=== PATIENT | male | born 1980 | race Caucasian/White ===

== ENCOUNTER 2017-04-19 23:15 | Emergency (ER) | payer SELFPAY ==
[2017-04-19 23:16] VITALS: BMI 23.6
[2017-04-19 23:37] VITALS: RESP 18; TEMP 97.9; O2SAT 99
--- NOTE | 2017-04-19 23:44 | ED PDOC ---
Arrival/HPI - General Chief Complaint: Dental Pain Time Seen by Provider: 04/19/17 23:44 Historian: Patient - History of Present Illness Narrative History of Present Illness (Text): 04/19/17 23:44 36 year old male, whose past medical history includes wisdom tooth removal (6 months ago) and appendectomy, presents to the emergency department complaining of a passing out episode today which you felt was related to pain. Patient reports of worsening left sided oral pain radiating to the neck that began yesterday. He states releasing puss from the oral area. Patient reports passing out on the floor s/p having a headache with intact of Motrin. He does not recall what happened. Patient reports headache, nausea, vomiting x1, photophobia , but denies any fever, chills, chest pain, shortness of breath, diarrhea, urinary symptoms, back pain, dizziness, neck spinal tenderness, or any other complaints/injuries. 04/20/17 01:14 Time/Duration: Other (yesterday) Symptom Onset: Sudden Symptom Course: Worsening Activities at Onset: Light Context: Home Past Medical History - Provider Review Nursing Documentation Reviewed: Yes - Travel History Have you recently traveled outside [place] w/in the past 3 mons?: No - Tetanus Immunization Tetanus Immunization: Up to Date - Past Medical History Past Medical History: No Previous - Cardiac Hx Cardiac Disorders: No - Pulmonary Hx Respiratory Disorders: No - HEENT Hx HEENT Disorder: No - Renal Hx Renal Disorder: No - Endocrine/Metabolic Hx Endocrine Disorders: No - Hematological/Oncological Hx Blood Disorders: No - Integumentary Hx Dermatological Disorder: No - Musculoskeletal/Rheumatological Hx Musculoskeletal Disorders: No - Gastrointestinal Other/Comment: Appendicitis - Genitourinary/Gynecological Hx Genitourinary Disorders: No - Psychiatric Hx Psychophysiologic Disorder: No Hx Substance Use: No - Surgical History Hx Appendectomy: Yes - Suicidal Assessment Feels Threatened In Home Enviroment: No Family/Social History - Physician Review Nursing Documentation Reviewed: Yes Family/Social History: No Known Family HX Smoking Status: Current Some Days Smoker Hx Alcohol Use: No Hx Substance Use: No Allergies/Home Meds Allergies/Adverse Reactions: Allergies Penicillins Allergy (Verified 04/20/17 00:39) ANAPHYLAXIS Home Medications: Home Meds Medication Instructions Recorded Confirmed No Known Home Med 04/19/17 04/19/17 Review of Systems - Physician Review All systems were reviewed & negative as marked: Yes - Review of Systems Constitutional: absent: Fevers, Other (Chills) Eyes: Photophobia ENT: Other (Left oral pain) Respiratory: absent: SOB Cardiovascular: absent: Chest Pain Gastrointestinal: Nausea, Vomiting. absent: Diarrhea Genitourinary Male: absent: Dysuria, Frequency, Hematuria Musculoskeletal: Neck Pain. absent: Back Pain Neurological: absent: Headache, Dizziness Endocrine: Normal Hemo/Lymphatic: Normal Psychiatric: Normal Physical Exam Vital Signs Reviewed: Yes Vital Signs Temp Pulse Resp BP Pulse Ox 04/19/17 23:36 97.9 F 55 L 18 107/81 99 Temperature: Afebrile Blood Pressure: Normal Pulse: Bradycardic Respiratory Rate: Normal Appearance: Positive for: Well-Appearing, Non-Toxic, Comfortable Pain Distress: None Mental Status: Positive for: Alert and Oriented X 3 - Systems Exam Head: Present: Atraumatic, Normocephalic Pupils: Present: PERRL. No: Other ((-) Nystagmia) Extroacular Muscles: Present: EOMI Conjunctiva: Present: Normal Mouth: Present: Moist Mucous Membranes, Other ((-) Oral Erythema. no area of fluctuance/crepitus left posterior lower dental area. no pharyngeal swelling/ exudates. speaking normal voice.) Pharnyx: Present: Normal. No: ERYTHEMA, Other ((-) Pharynx infection) Neck: Present: Normal Range of Motion. No: MIDLINE TENDERNESS, Paraspinal Tenderness Respiratory/Chest: Present: Clear to Auscultation, Good Air Exchange. No: Respiratory Distress, Accessory Muscle Use Cardiovascular: Present: Regular Rate and Rhythm, Normal S1, S2. No: Murmurs Abdomen: Present: Normal Bowel Sounds. No: Tenderness, Distention, Peritoneal Signs Back: Present: Normal Inspection, Other (no c-l-t spine tenderness. supple neck. ) Upper Extremity: Present: Normal Inspection, Neurovascularly Intact. No: Cyanosis, Edema Lower Extremity: Present: Normal Inspection, Neurovascularly Intact. No: Edema Neurological: Present: GCS=15, CN II-XII Intact, Speech Normal, Motor Func Grossly Intact, Normal Sensory Function, Normal Cerebellar Funct Skin: Present: Warm, Dry, Normal Color. No: Rashes Psychiatric: Present: Alert, Oriented x 3, Normal Insight, Normal Concentration Medical Decision Making ED Course and Treatment: 04/19/17 23:44 Impression: 36 year old male presents complaining of a left sided oral pain radiating to the neck with a passing out episode today to pain. Denies any past medical history. Plan: -- Reassess and disposition Progress Notes: 04/20/17 01:17 36 year old male, whose past medical history includes wisdom tooth removal (6 months ago) and appendectomy, presents to the emergency department complaining of a passing out episode today which you felt was related to pain. Patient reports of worsening left sided oral pain radiating to the neck that began yesterday. He states releasing puss from the oral area. Patient reports passing out on the floor s/p having a headache with intact of Motrin. He does not recall what happened. Patient reports headache, nausea, vomiting x1, photophobia , but denies any fever, chills, chest pain, shortness of breath, diarrhea, urinary symptoms, back pain, dizziness, neck spinal tenderness, or any other complaints/injuries. You were otherwise breathing easily, good strength/ sensation, walking easily, clear lungs, no abdomen tenderness, no redness or pocket of infection in the left lower mouth area, no back of throat infection, no spinal tenderness, no fever temp 97.9, stable heart rate 55, stable breathing rate 18, excellent oxygen level 99% room air, stable blood pressure 107/81, gave tylenol done in the ED with mild improvement, counselled to complete further work-up and radiology testing but you refused and cautioned for complications and thus discharged home with lan support specialist. 1. Recommend tylenol as directed for pain control. 2. Recommend follow-up primary care 1 days to review symptoms, referral to cardiology clinic, neurology clinic and dental clinic to review your symptoms. don't drive or operate heavy machinery till first clinic visit. 4. If any worsening pain, fever, chills, nausea, vomiting, difficulty breathing, numbness, loss of limb function, pain with urination or any medical condition then return to the ED. 04/20/17 01:23 - RAD Interpretation Radiology Orders: 04/20/17 01:11 HEAD W/O CONTRAST [CT] Stat - Medication Orders Current Medication Orders: Discontinued Medications Acetaminophen (Tylenol 325mg Tab) 975 mg PO STAT STA Stop: 04/20/17 00:40 Last Admin: 04/20/17 00:47 Dose: 975 mg MAR Pain/Vitals Document 04/20/17 00:47 RD (Rec: 04/20/17 00:47 RD [id number]) Pain Reassessment Is This A Pain ReAssessment? No Sleep Is patient sleeping during reassessment? No Presence of Pain Presence of Pain Yes - Scribe Statement The provider has reviewed the documentation as recorded by the Rajinderibyasir Rodriguez Provider Scribe Attestation: All medical record entries made by the Rajinderibyasir were at my direction and personally dictated by me. I have reviewed the chart and agree that the record accurately reflects my personal performance of the history, physical exam, medical decision making, and the department course for this patient. I have also personally directed, reviewed, and agree with the discharge instructions and disposition. Disposition/Present on Arrival - Present on Arrival Any Indicators Present on Arrival: No History of DVT/PE: No History of Uncontrolled Diabetes: No Urinary Catheter: No History of Decub. Ulcer: No History Surgical Site Infection Following: None - Disposition Have Diagnosis and Disposition been Completed?: Yes Diagnosis: Pain, dental Disposition: AGAINST MEDICAL ADVICE Disposition Time: 01:24 Patient Problems: Current Active Problems Problem Status Onset Pain, dental Acute Condition: STABLE Forms: [employer] (Bulgarian)
[2017-04-20] MEDS ORDERED: Apap-Butalbital-Caffeine 325-50-40mg Tab PO ONE (01:29)
[2017-04-20 01:31] VITALS: BP 112/70; PULSE 58
== END 2017-04-20 01:41 | disposition left against medical advice (07) ==
LOC: ED 23:15
DX: K08.89 Other specified disorders of teeth and supporting structures (principal); Z88.0 Allergy status to penicillin

== ENCOUNTER 2017-12-10 18:56 | Emergency (ER) | payer MEDICAID ==
[2017-12-10 18:56] VITALS: BMI 23.6
[2017-12-10] MEDS ORDERED: Lidocaine 2% Inj (20ml) IJ STA (19:51)
[2017-12-10] MEDS ORDERED: Tmp-Smz 800 mg-160 mg DS Tab PO STA (19:53)
--- NOTE | 2017-12-10 19:55 | ED PDOC ---
Arrival/HPI - General Time Seen by Provider: 12/10/17 19:50 Historian: Patient - History of Present Illness Narrative History of Present Illness (Text): 12/10/17 19:52 36-year-old male presents today with a one and half week history of left 3rd finger pain and swelling. 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 He describes a throbbing sensation to the tip of the finger. He denies numbness weakness or tingling in the extremity. He denies limited range of motion of the finger. No other complaints Past Medical History - Provider Review Nursing Documentation Reviewed: Yes - Travel History Have you recently traveled outside [place] w/in the past 3 mons?: No - Tetanus Immunization Tetanus Immunization: Up to Date - Past Medical History Past Medical History: No Previous - Cardiac Hx Cardiac Disorders: No - Pulmonary Hx Respiratory Disorders: No - HEENT Hx HEENT Disorder: No - Renal Hx Renal Disorder: No - Endocrine/Metabolic Hx Endocrine Disorders: No - Hematological/Oncological Hx Blood Disorders: No - Integumentary Hx Dermatological Disorder: No - Musculoskeletal/Rheumatological Hx Musculoskeletal Disorders: No - Gastrointestinal Other/Comment: Appendicitis - Genitourinary/Gynecological Hx Genitourinary Disorders: No - Psychiatric Hx Psychophysiologic Disorder: No Hx Substance Use: No - Surgical History Hx Appendectomy: Yes - Suicidal Assessment Feels Threatened In Home Enviroment: No Family/Social History - Physician Review Nursing Documentation Reviewed: Yes Family/Social History: Unknown Family HX Smoking Status: Current Some Days Smoker Hx Alcohol Use: No Hx Substance Use: No Allergies/Home Meds Allergies/Adverse Reactions: Allergies Penicillins Allergy (Verified 04/20/17 00:39) ANAPHYLAXIS Review of Systems - Review of Systems Constitutional: absent: Fatigue, Fevers Respiratory: absent: SOB, Cough Cardiovascular: absent: Chest Pain, Palpitations Gastrointestinal: absent: Abdominal Pain, Nausea, Vomiting Musculoskeletal: Arthralgias, Back Pain Skin: Other (paronychia) Neurological: absent: Headache, Dizziness Psychiatric: absent: Anxiety, Depression Physical Exam Vital Signs Reviewed: Yes Temperature: Afebrile Blood Pressure: Normal Pulse: Regular Respiratory Rate: Normal Appearance: Positive for: Well-Appearing, Non-Toxic, Comfortable Pain Distress: None Mental Status: Positive for: Alert and Oriented X 3 - Systems Exam Head: Present: Atraumatic Mouth: Present: Moist Mucous Membranes Respiratory/Chest: Present: Clear to Auscultation Cardiovascular: Present: Regular Rate and Rhythm Upper Extremity: Present: Normal ROM, NORMAL PULSES, Tenderness (left 3rd finger ; + swelling over the distal lateral cuticle; no erythema; full rom of finger. sensation and distal pulses intact. cap refill <2. ), Swelling, Neurovascularly Intact, Capillary Refill < 2s. No: Erythema Neurological: Present: GCS=15, Speech Normal Skin: Present: Warm, Dry Psychiatric: Present: Alert Medical Decision Making ED Course and Treatment: 12/10/17 19:55 Patient is nontoxic well-appearing in no distress. Vital signs are stable. Patient with left third finger paronychia Bactrim DS p.o. I&D performed Dressing applied Patient was advised to use warm compresses warm soaks return to the emergency room in 2 days for packing removal and reevaluation. return immediately if symptoms worsen persist or if new symptoms develop. Advised taking antibiotics as prescribed. Patient verbalizes understanding of discharge instructions and need for immediate followup. all aspects of this case were discussed the attending of record. Impression: paronychia Motrin one tablet every 6 hours as needed for pain Bactrim DS: One tablet twice daily x7 days Warm compresses and warm soaks frequently Return in 2 days for packing removal and wound check Follow up with the primary care physician within the next 2 days. Follow up with the surgeon within the next 2 days. Return immediately if symptoms worsen persist or if new symptoms develop: High fevers, increasing pain, increasing redness, swelling or if any other concerning symptoms develop. - Medication Orders Current Medication Orders: Lidocaine HCl (Lidocaine 2% 20ml Vial) 3 ml IJ ONCE STA Stop: 12/10/17 19:52 Procedures - Incision and Drainage Site: left 3rd finger Blade Size: 11 I & D Procedure: gauze wick placed Progress: left 3rd finger; area was prepped using sterile technique; digital block performed using 2% lidocaine 2cc injected. adequate anesthesia; small incision made under the lateral cuticle. small amount of purulent discharge released. 1/ 4 sterile packing placed. dressing applied. pt tolerated procedure well. no complications. Disposition/Present on Arrival - Present on Arrival Any Indicators Present on Arrival: No History of DVT/PE: No History of Uncontrolled Diabetes: No Urinary Catheter: No History Surgical Site Infection Following: None - Disposition Have Diagnosis and Disposition been Completed?: Yes Diagnosis: Paronychia Disposition: HOME/ ROUTINE Disposition Time: 19:58 Patient Plan: Discharge Patient Problems: Current Active Problems Problem Status Onset Paronychia Acute Condition: GOOD Discharge Instructions (ExitCare): Paronychia (DC) Additional Instructions: Motrin one tablet every 6 hours as needed for pain Bactrim DS: One tablet twice daily x7 days Warm compresses and warm soaks frequently Return in 2 days for packing removal and wound check Follow up with the primary care physician within the next 2 days. Follow up with the surgeon within the next 2 days. Return immediately if symptoms worsen persist or if new symptoms develop: High fevers, increasing pain, increasing redness, swelling or if any other concerning symptoms develop. Prescriptions: Ibuprofen [Motrin] 600 mg PO Q6H PRN #20 tab PRN Reason: pain/fever reduction Sulfamethoxazole/Trimethoprim [Bactrim DS 800 mg-160 mg] 1 tab PO BID #14 tab Referrals: Anna Rosenbaum MD [Primary Care Provider] - Follow up with primary Berhane Vicente MD [Staff Provider] - Follow up with primary Forms: WORK NOTE
[2017-12-10] MEDS ORDERED: Lidocaine PF 2% (5 ml) Inj (For Cardiac Arrhy) ONE (20:05)
[2017-12-10 20:06] VITALS: RESP 18; TEMP 98
[2017-12-10 21:31] VITALS: BP 112/72; PULSE 82; O2SAT 99
== END 2017-12-10 20:20 | disposition home or self-care (01) ==
LOC: ED 18:56
DX: L03.012 Cellulitis of left finger (principal)

== ENCOUNTER 2017-12-12 11:43 | Emergency (ER) | payer MEDICAID ==
[2017-12-12 11:51] VITALS: RESP 18; O2SAT 100
[2017-12-12 11:52] VITALS: BMI 20.7
--- NOTE | 2017-12-12 12:05 | ED PDOC ---
Arrival/HPI - General Chief Complaint: Wound Check Time Seen by Provider: 12/12/17 12:02 Historian: Patient - History of Present Illness Narrative History of Present Illness (Text): 12/12/17 12:02 This 36 yo male presents to this ED for packing removal and wound recheck. Patient stated he has I&D done x 2 days ago. Patient has not started abx yet. Denies other new somatic complains. Finger pain has improved. Time/Duration: Other (see hpi) Context: Home Past Medical History - Provider Review Nursing Documentation Reviewed: Yes - Infectious Disease Hx of Infectious Diseases: None - Tetanus Immunization Tetanus Immunization: Up to Date - Past Medical History Past Medical History: No Previous - Cardiac Hx Cardiac Disorders: No - Pulmonary Hx Respiratory Disorders: No - HEENT Hx HEENT Disorder: No - Renal Hx Renal Disorder: No - Endocrine/Metabolic Hx Endocrine Disorders: No - Hematological/Oncological Hx Blood Disorders: No - Integumentary Hx Dermatological Disorder: No - Musculoskeletal/Rheumatological Hx Musculoskeletal Disorders: No - Gastrointestinal Other/Comment: Appendicitis - Genitourinary/Gynecological Hx Genitourinary Disorders: No - Psychiatric Hx Psychophysiologic Disorder: No Hx Substance Use: No - Surgical History Hx Appendectomy: Yes - Anesthesia Hx Anesthesia: No Hx Anesthesia Reactions: No Hx Malignant Hyperthermia: No - Suicidal Assessment Feels Threatened In Home Enviroment: No Family/Social History - Physician Review Nursing Documentation Reviewed: Yes Family/Social History: Other (noncontributory) Smoking Status: Current Some Days Smoker Hx Alcohol Use: No Hx Substance Use: No Allergies/Home Meds Allergies/Adverse Reactions: Allergies Penicillins Allergy (Verified 04/20/17 00:39) ANAPHYLAXIS Review of Systems - Review of Systems Constitutional: Normal. absent: Fatigue, Weight Change, Fevers, Night Sweats Eyes: Normal ENT: Normal Respiratory: Normal Cardiovascular: Normal Gastrointestinal: Normal Genitourinary Male: Normal Musculoskeletal: Other (see hpi) Skin: Normal Neurological: Normal Endocrine: Normal Hemo/Lymphatic: Normal Psychiatric: Normal Physical Exam Vital Signs Temp Pulse Resp BP Pulse Ox 12/12/17 11:44 98.3 F 90 18 118/65 100 Temperature: Afebrile Blood Pressure: Normal Pulse: Regular Respiratory Rate: Normal Appearance: Positive for: Well-Appearing, Non-Toxic, Comfortable Pain Distress: None Mental Status: Positive for: Alert and Oriented X 3 - Systems Exam Head: Present: Atraumatic, Normocephalic Pupils: Present: PERRL Extroacular Muscles: Present: EOMI Conjunctiva: Present: Normal Mouth: Present: Moist Mucous Membranes Neck: Present: Normal Range of Motion Upper Extremity: Present: Normal ROM, NORMAL PULSES, Neurovascularly Intact, Capillary Refill < 2s, Other ((+) left 3rd finger nail wound is not tender, no drainage noted. Packing in place. No streaking erythema.). No: Cyanosis, Edema, Erythema Lower Extremity: Present: Normal Inspection, Normal ROM Neurological: Present: CN II-XII Intact, Speech Normal, Motor Func Grossly Intact, Normal Sensory Function, Normal Cerebellar Funct, Gait Normal Skin: Present: Warm, Dry, Normal Color. No: Rashes Psychiatric: Present: Alert, Oriented x 3, Normal Insight, Normal Concentration Medical Decision Making ED Course and Treatment: 12/12/17 12:05 Re-evaluation. Patient feels better. Discussed results and plan with patient who expresses understanding. All questions answered and there is agreement with the plan to discharge home with instructions. Patient stable for discharge. Return if symptoms persist or worsen. Under aseptic technique, packing was removed without difficulty. Patient tolerated procedure well. Band aid and Bacitracin ointment applied. Re-evaluation Time: 12:05 Reassessment Condition: Re-examined, Improved Disposition/Present on Arrival - Present on Arrival Any Indicators Present on Arrival: No History of DVT/PE: No History of Uncontrolled Diabetes: No Urinary Catheter: No History of Decub. Ulcer: No History Surgical Site Infection Following: None - Disposition Have Diagnosis and Disposition been Completed?: Yes Diagnosis: Encounter for wound re-check, Encounter for abscess packing removal Disposition: HOME/ ROUTINE Disposition Time: 12:06 Patient Plan: Discharge Condition: IMPROVED Additional Instructions: Call private doctor for wound check in 2-3 days. Take antibiotic as instructed in last ED visit. Clean wound daily with soap and water . Return to emergency if wound becomes infected. Referrals: Elba Christie MD [Medical Doctor] - Follow up with primary
[2017-12-12 12:37] VITALS: BP 124/68; PULSE 84; TEMP 98
== END 2017-12-12 12:36 | disposition home or self-care (01) ==
LOC: ED 11:43
DX: Z48.01 Encounter for change or removal of surgical wound dressing (principal)